=== PATIENT | male | born 1975 | race African-American/Black ===

== ENCOUNTER 2017-11-26 16:10 | Emergency (ER) | payer BC, OTHER ==
[2017-11-26] MEDS ORDERED: Ketorolac Tromethamine 30 MG/ML VIAL ONE (16:24)
[2017-11-26] MEDS ORDERED: Sodium Chloride 0.9% 1,000 ML ONE ×2 (16:24→17:11)
[2017-11-26 16:55] LABS: #Basophils 0.1 thou/uL (0.0-0.2); #Lymphocytes 1.6 thou/uL (1.20-3.40); #Monocytes 0.6 thou/uL (0.11-0.59); #Neutrophils 2.9 thou/uL (1.40-6.50); %Basophils 1.6 % (0.0-1.0); %Eosinophils 0.9 % (0.0-10.0); %Lymphocytes 30.5 % (21.0-51.0); %Monocytes 12.1 % (0.0-10.0); %Neutrophils 54.9 % (42.0-75.0); Hemoglobin 16.2 g/dL (14.0-18.0); Mean Corpuscular HGB CONC 31.4 g/dL (32.0-36.0); Mean Corpuscular Hemoglobin 26.8 pg (27.0-31.0); Mean Corpuscular Volume 85.4 fL (78.0-98.0); Mean Platelet Volume 7.2 fL (7.4-10.4); Platelet Count 259 thou/uL (130-400); RBC Distribution Width 13.5 % (11.5-14.5); Red Blood Cell (RBC) Count 6.03 mill/uL (4.70-6.10); White Blood Cell (WBC) Count 5.3 thou/uL (4.8-10.8)
--- NOTE | 2017-11-26 17:00 | RAD ---
2 VIEWS CHEST: Date: 11/26/17 COMPARISON: None. HISTORY: Hypertension. Cramping in bilateral legs and hands. FINDINGS: Two views of the chest show normal sized cardiomediastinal silhouette. There is no evidence of consol idation, mass, or pleural effusion. The bones are unremarkable. IMPRESSION: No evidence of acute cardiopulmonary disease. POS: [facility]
[2017-11-26 17:06] LABS: ALT (SGPT) 40 U/L (8-55); AST (SGOT) 34 U/L (5-34); Albumin 4.8 g/dL (3.5-5.0); Alkaline Phosphatase 49 U/L (40-150); Anion Gap 15 mmol/L (10-20); BUN (Urea Nitrogen) 19 mg/dL (8.9-20.6); Bilirubin, Total 0.8 mg/dL (0.2-1.2); CK (CPK) 907 U/L (30-200); Calc. Creatinine Clearance 0 mL/min (70-130); Calcium 9.8 mg/dL (7.8-10.44); Carbon Dioxide 22 mmol/L (22-29); Chloride 107 mmol/L (98-107); Estimated GFR-MDRD 66; Globulin 3.2 g/dL (2.4-3.5); Glucose 118 mg/dL (70-105); Potassium 4.2 mmol/L (3.5-5.1); Sodium 140 mmol/L (136-145)
[2017-11-26 17:08] LABS: CKMB 3.1 ng/mL (0-6.6); Troponin I Less than 0.010 ng/mL (< 0.028)
[2017-11-26 19:00] LABS: Anion Gap 13 mmol/L (10-20); BUN (Urea Nitrogen) 18 mg/dL (8.9-20.6); CK (CPK) 747 U/L (30-200); Calc. Creatinine Clearance 0 mL/min (70-130); Calcium 8.7 mg/dL (7.8-10.44); Carbon Dioxide 24 mmol/L (22-29); Chloride 108 mmol/L (98-107); Estimated GFR-MDRD 68; Glucose 91 mg/dL (70-105); Potassium 3.9 mmol/L (3.5-5.1); Sodium 141 mmol/L (136-145)
== END 2017-11-26 19:25 | disposition home or self-care (01) ==
LOC: EDBD 16:10 → NAV ERS 16:10
DX: M62.82 Rhabdomyolysis (principal); N28.9 Disorder of kidney and ureter, unspecified
CPT/HCPCS: 71046; 80053; 82553; 84484; 85025; 93005; 96361; 96374; J1885; J7050

== ENCOUNTER 2018-03-19 20:06 | Emergency (ER) | payer BC ==
[2018-03-19] MEDS ORDERED: Lidocaine 1% (PF) 30 ML VIAL ONE (20:36)
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
[2018-03-19] MEDS ORDERED: Bacitracin Zinc 1 Packet ONE (20:46)
== END 2018-03-19 21:04 | disposition home or self-care (01) ==
LOC: NAV ERS 20:06
DX: S91.321A Laceration with foreign body, right foot, initial encounter (principal); W26.9XXA Contact with unspecified sharp object(s), initial encounter
CPT/HCPCS: 10120; J2001

== ENCOUNTER 2018-09-25 19:33 | Emergency (ER) | payer BC ==
[2018-09-25] MEDS ORDERED: Aspirin Chewable 81 MG TAB ONE (19:47)
[2018-09-25 19:59] LABS: #Basophils 0.1 thou/uL (0.0-0.2); #Eosinphils 0.1 thou/uL (0.0-0.7); #Monocytes 0.5 thou/uL (0.11-0.59); #Neutrophils 1.9 thou/uL (1.40-6.50); %Basophils 1.2 % (0.0-1.0); %Eosinophils 2.5 % (0.0-10.0); %Lymphocytes 42.8 % (21.0-51.0); %Monocytes 11.2 % (0.0-10.0); %Neutrophils 42.3 % (42.0-75.0); Hemoglobin 15.2 g/dL (14.0-18.0); Mean Corpuscular HGB CONC 32.6 g/dL (32.0-36.0); Mean Corpuscular Hemoglobin 27.9 pg (27.0-31.0); Mean Corpuscular Volume 85.5 fL (78.0-98.0); Mean Platelet Volume 6.4 fL (7.4-10.4); Platelet Count 226 thou/uL (130-400); RBC Distribution Width 13.7 % (11.5-14.5); Red Blood Cell (RBC) Count 5.47 mill/uL (4.70-6.10); White Blood Cell (WBC) Count 4.6 thou/uL (4.8-10.8)
[2018-09-25 20:14] LABS: ALT (SGPT) 28 U/L (8-55); AST (SGOT) 24 U/L (5-34); Albumin 4.4 g/dL (3.5-5.0); Alkaline Phosphatase 52 U/L (40-150); Anion Gap 15 mmol/L (10-20); BUN (Urea Nitrogen) 18 mg/dL (8.9-20.6); Bilirubin, Total 0.5 mg/dL (0.2-1.2); Calc. Creatinine Clearance 0 mL/min (70-130); Calcium 9.5 mg/dL (7.8-10.44); Carbon Dioxide 25 mmol/L (22-29); Chloride 105 mmol/L (98-107); Estimated GFR-MDRD 79; Globulin 3.3 g/dL (2.4-3.5); Glucose 91 mg/dL (70-105); Lipase 22 U/L (8-78); Magnesium 2.2 mg/dL (1.6-2.6); Protein, Total 7.7 g/dL (6.0-8.3); Sodium 141 mmol/L (136-145)
--- NOTE | 2018-09-25 20:33 | RAD ---
TWO VIEWS CHEST: 09/25/18 COMPARISON: 09/26/17 HISTORY: Substernal chest pain. FINDINGS: Lungs are clear. Heart and mediastinal contours are unremarkable. IMPRESSION: No acute findings. POS: [facility]
[2018-09-25 23:02] LABS: Troponin I Less than 0.010 ng/mL (< 0.028)
== END 2018-09-26 00:03 | disposition home or self-care (01) ==
LOC: NAV ERS 19:33
DX: R07.2 Precordial pain (principal); Z87.891 Personal history of nicotine dependence; Z79.899 Other long term (current) drug therapy
CPT/HCPCS: 71046; 80053; 83690; 83735; 84484; 85025; 93005; 94760

== ENCOUNTER 2019-03-18 12:12 | Outpatient (CLI) | payer OTHER ==
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
== END 2019-03-18 12:13 | disposition home or self-care (01) ==
LOC: NAV RAD 12:12
PROVIDERS: ATTEND Family Medicine
DX: M54.12 Radiculopathy, cervical region (principal)
CPT/HCPCS: 72050

== ENCOUNTER 2020-09-02 16:52 | Emergency (ER) | payer BC ==
[2020-09-02 17:34] LABS: #Basophils 0.1 thou/uL (0.0-0.2); #Eosinphils 0.1 thou/uL (0.0-0.7); #Lymphocytes 1.8 thou/uL (1.20-3.40); #Monocytes 0.5 thou/uL (0.11-0.59); #Neutrophils 2.1 thou/uL (1.40-6.50); %Basophils 1.8 % (0.0-1.0); %Eosinophils 1.8 % (0.0-10.0); %Lymphocytes 39.8 % (21.0-51.0); %Neutrophils 46.6 % (42.0-75.0); Hemoglobin 14.9 g/dL (14.0-18.0); Mean Corpuscular HGB CONC 31.6 g/dL (32.0-36.0); Mean Corpuscular Hemoglobin 28.9 pg (27.0-31.0); Mean Corpuscular Volume 91.6 fL (78.0-98.0); Mean Platelet Volume 7.2 fL (7.4-10.4); Platelet Count 228 thou/uL (130-400); RBC Distribution Width 13.6 % (11.5-14.5); Red Blood Cell (RBC) Count 5.16 mill/uL (4.70-6.10); White Blood Cell (WBC) Count 4.6 thou/uL (4.8-10.8)
[2020-09-02 17:41] LABS: ALT (SGPT) 28 U/L (8-55); AST (SGOT) 22 U/L (5-34); Albumin 4.1 g/dL (3.5-5.0); Alkaline Phosphatase 58 U/L (40-110); Anion Gap 14 mmol/L (10-20); BUN (Urea Nitrogen) 13 mg/dL (8.9-20.6); Bilirubin, Total 0.4 mg/dL (0.2-1.2); Calc. Creatinine Clearance 0 mL/min (70-130); Carbon Dioxide 24 mmol/L (22-29); Chloride 106 mmol/L (98-107); Globulin 2.9 g/dL (2.4-3.5); Glucose 109 mg/dL (70-105); Potassium 4.1 mmol/L (3.5-5.1); Sodium 140 mmol/L (136-145)
[2020-09-02 19:46] LABS: Troponin I Less than 0.010 ng/mL (< 0.028)
== END 2020-09-02 19:54 | disposition home or self-care (01) ==
LOC: NAV ERS 16:52
DX: R07.89 Other chest pain (principal); R11.0 Nausea; R05 Cough
CPT/HCPCS: 71045; 80053; 84484; 85025; 93005; 94760

== ENCOUNTER 2021-01-21 18:44 | Emergency (ER) | payer BC, SELFPAY ==
[2021-01-21 19:24] LABS: #Basophils 0.1 thou/uL (0.0-0.2); #Eosinphils 0.1 thou/uL (0.0-0.7); #Lymphocytes 2.1 thou/uL (1.20-3.40); #Monocytes 0.6 thou/uL (0.11-0.59); #Neutrophils 2.7 thou/uL (1.40-6.50); %Basophils 1.2 % (0.0-1.0); %Eosinophils 1.9 % (0.0-10.0); %Lymphocytes 37.2 % (21.0-51.0); %Monocytes 11.2 % (0.0-10.0); %Neutrophils 48.5 % (42.0-75.0); Hemoglobin 17.1 g/dL (14.0-18.0); Mean Corpuscular HGB CONC 31.7 g/dL (32.0-36.0); Mean Corpuscular Hemoglobin 28.3 pg (27.0-31.0); Mean Corpuscular Volume 89.3 fL (78.0-98.0); Mean Platelet Volume 6.5 fL (7.4-10.4); Platelet Count 253 thou/uL (130-400); RBC Distribution Width 13.3 % (11.5-14.5); Red Blood Cell (RBC) Count 6.02 mill/uL (4.70-6.10); White Blood Cell (WBC) Count 5.5 thou/uL (4.8-10.8)
[2021-01-21 19:42] LABS: ALT (SGPT) 33 U/L (8-55); AST (SGOT) 42 U/L (5-34); Albumin 4.5 g/dL (3.5-5.0); Alkaline Phosphatase 60 U/L (40-110); Anion Gap 15 mmol/L (10-20); BUN (Urea Nitrogen) 26 mg/dL (8.9-20.6); Bilirubin, Total 0.5 mg/dL (0.2-1.2); CK (CPK) 1505 U/L (30-200); Calc. Creatinine Clearance 0 mL/min (70-130); Calcium 9.8 mg/dL (7.8-10.44); Carbon Dioxide 25 mmol/L (22-29); Chloride 101 mmol/L (98-107); Globulin 3.5 g/dL (2.4-3.5); Glucose 110 mg/dL (70-105); Potassium 4.2 mmol/L (3.5-5.1); Sodium 137 mmol/L (136-145)
[2021-01-21] MEDS ORDERED: Sodium Chloride 0.9% 2,000 ML ONE (19:56)
[2021-01-21 21:01] LABS: Bilirubin Small (Negative); Blood, Urine Small (Negative); Clarity Clear (Clear); Glucose, Urine (Dipstick) Negative (Negative); Ketone, Urine Negative (Negative); Leukocyte Negative (Negative); Nitrite Negative (Negative); Protein, Urine (Dipstick) Trace mg/dL (Neg-Trace); Urobilinogen 0.2 mg/dL (Less than 2); pH, Urine 5.5 (5.0-9.0)
[2021-01-21 21:04] LABS: Specific Gravity, Urine 1.034 (1.002-1.036)
[2021-01-21 21:08] LABS: Bacteria/HPF None Seen HPF (None Seen); RBC/HPF 0-3 HPF (0-3); Squamous Epithelial None Seen HPF (0-3); WBC/HPF None Seen HPF (0-3)
== END 2021-01-21 21:43 | disposition home or self-care (01) ==
LOC: NAV ERS 18:44
DX: M62.82 Rhabdomyolysis (principal); N28.9 Disorder of kidney and ureter, unspecified
CPT/HCPCS: 80053; 81003; 81015; 82550; 84484; 85025; 93005; J7050

== ENCOUNTER 2021-01-26 13:34 | Emergency (ER) | payer SELFPAY ==
[2021-01-26 14:31] LABS: #Basophils 0.1 thou/uL (0.0-0.2); #Eosinphils 0.1 thou/uL (0.0-0.7); #Monocytes 0.6 thou/uL (0.11-0.59); #Neutrophils 2.3 thou/uL (1.40-6.50); %Basophils 1.6 % (0.0-1.0); %Eosinophils 2.2 % (0.0-10.0); %Lymphocytes 39.6 % (21.0-51.0); %Monocytes 11.4 % (0.0-10.0); %Neutrophils 45.2 % (42.0-75.0); Hemoglobin 16.1 g/dL (14.0-18.0); Mean Corpuscular HGB CONC 31.4 g/dL (32.0-36.0); Mean Corpuscular Hemoglobin 28.5 pg (27.0-31.0); Mean Corpuscular Volume 90.6 fL (78.0-98.0); Mean Platelet Volume 6.7 fL (7.4-10.4); Platelet Count 230 thou/uL (130-400); RBC Distribution Width 13.4 % (11.5-14.5); Red Blood Cell (RBC) Count 5.64 mill/uL (4.70-6.10); White Blood Cell (WBC) Count 5.2 thou/uL (4.8-10.8)
[2021-01-26 14:44] LABS: ALT (SGPT) 34 U/L (8-55); AST (SGOT) 26 U/L (5-34); Alkaline Phosphatase 55 U/L (40-110); Anion Gap 12 mmol/L (10-20); BUN (Urea Nitrogen) 14 mg/dL (8.9-20.6); Bilirubin, Total 0.4 mg/dL (0.2-1.2); CK (CPK) 386 U/L (30-200); Calc. Creatinine Clearance 0 mL/min (70-130); Calcium 9.6 mg/dL (7.8-10.44); Carbon Dioxide 26 mmol/L (22-29); Chloride 107 mmol/L (98-107); Globulin 3.3 g/dL (2.4-3.5); Glucose 105 mg/dL (70-105); Potassium 3.9 mmol/L (3.5-5.1); Protein, Total 7.3 g/dL (6.0-8.3); Sodium 141 mmol/L (136-145)
== END 2021-01-26 15:01 | disposition home or self-care (01) ==
LOC: NAV ERS 13:34
DX: M62.82 Rhabdomyolysis (principal)
CPT/HCPCS: 36415; 80053; 82550; 85025; 99283

== ENCOUNTER 2021-04-20 06:34 | Emergency (ER) | payer SELFPAY ==
[2021-04-20] MEDS ORDERED: Aspirin Chewable 81 MG TAB ONE (06:55)
[2021-04-20 07:14] LABS: ALT (SGPT) 44 U/L (8-55); AST (SGOT) 28 U/L (5-34); Albumin 4.1 g/dL (3.5-5.0); Alkaline Phosphatase 56 U/L (40-110); Anion Gap 11 mmol/L (10-20); BUN (Urea Nitrogen) 11 mg/dL (8.9-20.6); Bilirubin, Total 0.8 mg/dL (0.2-1.2); CK (CPK) 491 U/L (30-200); Calc. Creatinine Clearance 0 mL/min (70-130); Calcium 9.5 mg/dL (7.8-10.44); Carbon Dioxide 27 mmol/L (22-29); Chloride 104 mmol/L (98-107); Globulin 3.6 g/dL (2.4-3.5); Glucose 123 mg/dL (70-105); Lipase 109 U/L (8-78); Potassium 3.9 mmol/L (3.5-5.1); Protein, Total 7.7 g/dL (6.0-8.3); Sodium 138 mmol/L (136-145)
[2021-04-20 07:24] LABS: Hemoglobin 15.6 g/dL (14.0-18.0); Mean Corpuscular HGB CONC 31.4 g/dL (32.0-36.0); Mean Corpuscular Hemoglobin 28.3 pg (27.0-31.0); Mean Corpuscular Volume 90.1 fL (78.0-98.0); Mean Platelet Volume 7.1 fL (7.4-10.4); Platelet Count 233 thou/uL (130-400); RBC Distribution Width 12.7 % (11.5-14.5); Red Blood Cell (RBC) Count 5.52 mill/uL (4.70-6.10); White Blood Cell (WBC) Count 4.4 thou/uL (4.8-10.8)
[2021-04-20 07:25] LABS: Eosinophils 1 % (0-10); Lymphocytes 25 % (21-51); MDiff Complete? YES; Monocytes 7 % (0-10); Neutrophil 65 % (42-75)
[2021-04-20 07:26] LABS: Platelet Morphology Comment Appears Adequate; Reactive Lymphocytes 2 % (0-10)
== END 2021-04-20 08:06 | disposition home or self-care (01) ==
LOC: NAV ERS 06:34
DX: R07.89 Other chest pain (principal)
CPT/HCPCS: 71045; 80053; 82550; 83690; 84484; 85025; 93005

== ENCOUNTER 2025-01-13 08:12 | Emergency (ER) | payer OTHER ==
[2025-01-13] MEDS ORDERED: Acetaminophen 500 MG TAB ONE (08:35)
[2025-01-13] MEDS ORDERED: Aspirin Chewable 81 MG TAB ONE (08:35)
[2025-01-13] MEDS ORDERED: Pantoprazole 40 MG VIAL ONE (08:35)
[2025-01-13 08:50] LABS: #Basophils 0.1 thou/uL (0.0-0.2); #Eosinophils 0.1 thou/uL (0.0-0.7); #Lymphocytes 1.6 thou/uL (1.20-3.40); #Monocytes 0.4 thou/uL (0.11-0.59); #Neutrophils 2.0 thou/uL (1.40-6.50); %Basophils 1.3 % (0.0-1.0); %Eosinophils 1.4 % (0.0-10.0); %Lymphocytes 38.3 % (21.0-51.0); %Monocytes 10.4 % (0.0-10.0); %Neutrophils 48.6 % (42.0-75.0); Hematocrit 46.2 % (42.0-52.0); Hemoglobin 15.4 g/dL (14.0-18.0); Mean Corpuscular Hemoglobin 28.4 pg (27.0-31.0); Mean Corpuscular Volume 85.1 fl (78.0-98.0); Platelet Count 251 10x3/uL (130-400); Red Blood Cell (RBC) Count 5.43 mill/uL (4.70-6.10); White Blood Cell (WBC) Count 4.1 10x3/uL (4.8-10.8)
[2025-01-13 08:59] LABS: ALT (SGPT) 20 U/L (Less than 45); AST (SGOT) 28 U/L (11-34); Albumin 4.2 g/dL (3.1-4.5); Alkaline Phosphatase 54 U/L (40-110); Anion Gap 13 mmol/L (10-20); BUN (Urea Nitrogen) 15 mg/dL (8.9-20.6); Bilirubin, Total 0.9 mg/dL (0.3-1.2); Calc. Creatinine Clearance 0 mL/min (70-130); Calcium 9.0 mg/dL (7.8-10.44); Carbon Dioxide 23 mmol/L (22-29); Chloride 103 mmol/L (98-107); Globulin 3.4 g/dL (2.4-3.5); Glucose 112 mg/dL (70-105); Potassium 4.0 mmol/L (3.5-5.1); Sodium 135 mmol/L (136-145)
[2025-01-13 09:00] LABS: Troponin I Less than 0.010 ng/mL (< 0.028)
== END 2025-01-13 09:25 | disposition home or self-care (01) ==
LOC: NAV ERS 08:12
DX: R07.2 Precordial pain (principal); I10 Essential (primary) hypertension
CPT/HCPCS: 71046; 80053; 84484; 85025; 93005; 96374; J2470